=== PATIENT | male | born 1960 | race African-American/Black ===

== ENCOUNTER 2022-08-22 15:17 | Emergency (ER) | payer MEDICAID ==
[~2022-08-22] VITALS: Ht 188 cm; Wt 91.0 kg
[2022-08-22 16:31] VITALS: BP 129/85
== END 2022-08-22 16:32 | disposition home or self-care (01) ==
LOC: ER 16:04
DX: R10.9 Unspecified abdominal pain (principal)
CPT/HCPCS: 99283